=== PATIENT | male | born 1955 | race Caucasian/White ===

== ENCOUNTER 2020-04-10 13:22 | Outpatient (CLI) | payer OTHER, SELFPAY ==
--- NOTE | 2020-04-10 13:32 | XRR_ITS ---
PROCEDURE INFORMATION: Exam: XR Cervical Spine, 2 or 3 Views Exam date and time: 04/10/2020 1:32 PM Age: 64 years old Clinical indication: Neck pain TECHNIQUE: Imaging protocol: XR of the cervical spine, 2 or 3 views. COMPARISON: No relevant prior studies available. FINDINGS: Vertebrae: No acute fracture. Normal alignment. Degenerative change is identified in the spine. There is disc space narrowing and osteophyte formation especially at C5/6 and C6/7. Soft tissues: Unremarkable. XR/XR cervical spine 3V* [id number] IMPRESSION: No acute findings.
== END 2020-04-10 13:23 | disposition home or self-care (01) ==
LOC: RAD 13:27
PROVIDERS: PCP Nurse Practitioner Family; Visit Provider Nurse Practitioner Family
DX: M54.2 Cervicalgia (principal)
CPT/HCPCS: 72040

== ENCOUNTER 2020-04-29 07:35 | Outpatient (CLI) | payer OTHER, SELFPAY ==
--- NOTE | 2020-04-29 08:45 | MR_ITS ---
WS: [id number] MRI CERVICAL SPINE HISTORY: M50.30 Other cervical disc degeneration, unspecified cervical disease... COMPARISON: None available. Normal posterior cervical alignment. Severe degenerative disc space narrowing and desiccation at C5-6 . Modic 1 changes at C6 and C7 with moderate disc space narrowing. Endplate hypertrophic osteophytes at all levels. Signal within the cord is normal. There is a small osteophyte and disc at C5 causing mild contact on the ventral thecal sac. Craniocervical junction, C1 and C2 relationship, odontoid process and soft tissues are normal. C2-C3: Small osteophytes with no stenosis. C3-C4: Mild osteophytic ridging with a central disc protrusion. No significant stenosis. C4-C5: Mild annular disc bulging and osteophytic ridging. There is a very shallow central disc protru jw. Moderate bilateral facet joint arthritis, LEFT greater than RIGHT. C5-C6: Moderate osteophytic ridging and annular disc bulging. Mild facet joint arthritis. Small osteo phytes encroach upon the ventral thecal sac and foramen. Exiting nerve roots on the RIGHT are being d isplaced slightly. There is very mild central and RIGHT foraminal stenosis. C6-C7: Mild annular disc bulging and osteophyte ridging. There is mild narrowing of the central canal and foramen due to combination of disc osteophyte disease. Slightly greater foraminal narrowing as c ompared to C5-6. C7-T1: Normal. Paravertebral soft tissues are normal. MR/MR cervical spin wo con* [id number] IMPRESSION: 1. Mild central and bilateral foraminal stenosis at C5-6 and C6-7 due to osteo phytes and disc disease. Slightly greater foraminal narrowing at C6-7. 2. Advanced degenerative disc disease and narrowing at C5-6 and C6-7.
== END 2020-04-29 07:36 | disposition home or self-care (01) ==
LOC: RADSHAW 07:38
PROVIDERS: PCP Nurse Practitioner Family; Visit Provider Nurse Practitioner Family
DX: M50.30 Other cervical disc degeneration, unspecified cervical region (principal); M48.02 Spinal stenosis, cervical region; M50.323 Other cervical disc degeneration at C6-C7 level; M25.78 Osteophyte, vertebrae
CPT/HCPCS: 72141

== ENCOUNTER 2020-05-08 08:30 | Outpatient (RCR) | payer OTHER, SELFPAY | END 2020-05-15 23:59 | disposition home or self-care (01) | LOC: SPT 08:30 | PROVIDERS: PCP Nurse Practitioner Family; Referring Provider Nurse Practitioner Family; Visit Provider Nurse Practitioner Family | DX: M50.30 Other cervical disc degeneration, unspecified cervical region (principal) | CPT/HCPCS: 97162 ==

== ENCOUNTER 2022-09-15 12:28 | Emergency (ER) | payer MEDICARE, SELFPAY ==
[2022-09-15 12:36] VITALS: BP 149/79; PULSE 103; RESP 16; TEMP 36.4; O2SAT 98
--- NOTE | 2022-09-15 12:40 | ED_ITS ---
HPI - Weakness General: Chief complaint: Weakness Stated complaint: lethargic, eyes hurt Time Seen by Provider: 09/15/22 12:40 History of Present Illness: Mr. Law is a 67-year-old gentleman without significant past medical history presenting to the emergency department for generalized illness. He reports onset of symptoms subacute approximately 2 days ago. He was driving to work when he had onset of nausea that required him to ice puller and vomit. Subsequent to that he had profound fatigue and reports having difficulty keeping his eyes open. He thought that sleeping would help however when he woke up he felt similar and so returned home unable to work. He reports sinus and facial soreness as well as mild headache. He has cough which is baseline however sputum is more productive. He had some improvement in nasal discharge with [id number] medications. Intensity symptoms is moderate to severe. Course has persisted. No other specific changes in health, exace rbating, or alleviating factors identified. Onset (ago): day(s) Duration: constant Location: generalized Severity: moderate Quality: aching Relieving factors: none Exacerbating factors: none Associated symptoms: Reports nausea, vomiting and other Review of Systems General: Reports: 10 or more systems reviewed and unremarkable except in HPI and below GI: Reports: nausea and vomiting PFSH ED PFSH: Medical History (Updated 09/23/22 @ 00:03 by MARÍA ELENA Stroud) Chronic neck pain Surgical History History of surgery on arm Hx of foot surgery Family History Father Cancer Mother CAD (coronary artery disease) Social History Smoking and tobacco status: current every day smoker cigarettes and smokeless tobacco Physical Exam Const: COMMON NORMALS: alert GENERAL APPEARANCE: cooperative and well developed HENMT: COMMON NORMALS: normocephalic and atraumatic HEAD & SCALP: normocephalic and atraumatic THROAT: posterior oropharynx normal OTHER: Mild frontal sinus pressure. Patient is edentulous without evidence of abscess or bleeding. Eye: COMMON NORMALS: Equal, round and reactive pupils present, EOMs intact bilaterally and conjunctivae normal CONJUNCTIVA: Yes conjunctivae normal SCLERA: sclerae normal PUPIL: Yes Equal, round and reactive pupils present Neck/C-Spine: COMMON NORMALS: supple GENERAL: Yes trachea midline Resp: COMMON NORMALS: clear to auscultation bilaterally EFFORT & INSPECTION: Yes able to speak in complete sentences AUSCULTATION: clear to auscultation bilaterally Cardio: COMMON NORMALS: regular rate and regular rhythm RATE: regular rate RHYTHM: regular rhythm GI: COMMON NORMALS: Soft to palpation PALPATION: Yes Soft to palpation and No Tenderness to palpation present (GI) Extremity: GENERAL: Yes normal exam except as noted and No edema Neuro: COMMON NORMALS: moves all extremities SENSORIUM/ORIENTATION: Yes alert and No Orientation impaired Psych: COMMON NORMALS: mental status grossly normal and Normal thought process present THOUGHT PROCESS: Normal thought process present Course Vital Signs: Vital signs: Vital Signs Temperature 97.6 F 09/15/22 12:36 Pulse Rate 89 09/15/22 14:06 Respiratory Rate 16 09/15/22 14:06 Blood Pressure 146/79 09/15/22 14:06 Pulse Oximetry 99 09/15/22 14:06 Oxygen Delivery Me thod 09/15/22 13:37 MDM - Weakness Medical Decision Making 67-year-old gentleman who presented to the emergency department with generalized illness. Nonfocal neurologic exam and patient is nontoxic. Exam as above. No significant hematologic or metabolic abnormalities. Rapid viral testing is negative. Chest x-ray with emphysema. No lobar consolidation or pneumothorax. Patient significantly improved with Toradol and IV fluids. Most likely etiology of patient's symptoms is viral illness. The results of ED evaluation were discussed with the patient including prescriptions and/or symptomatic cares (if applicable) including appropriate and responsible use, followup plan, and return precautions. The patient verbalized understanding and felt safe for discharge. Medical Records I reviewed the patient's medical records. Lab Data I reviewed the patient's lab results. 09/15/22 12:56 09/15/22 12:56 Radiology Impressions Chest X-Ray 09/15/22 12:48 IMPRESSION: Chronic emphysema and biapical pleural thickening is stable. No acute findings. Laboratory Results WBC 4.4 10^3/uL (4.0-10.0) 09/15/22 12:56 RBC 4.59 10^6/uL (4.1-5.3) 09/15/22 12:56 Hgb 15.1 g/dL (11.7-16.6) 09/15/22 12:56 Hct 45.7 % (42.0-52.0) 09/15/22 12:56 MCV 99.6 fl (80-94) H 09/15/22 12:56 MCH 32.9 pg (28.0-34.0) 09/15/22 12:56 MCHC 33.0 g/dL (30.0-36.0) 09/15/22 12:56 RDW 14.4 % (12.1-15.1) 09/15/22 12:56 Plt Count 128 10^3/cmm (130-400) L 09/15/22 12:56 MPV 10.5 fL (7.4-10.4) H 09/15/22 12:56 Neut % (Auto) 39.7 % 09/15/22 12:56 Lymph % (Auto) 43.8 % 09/15/22 12:56 Harris % (Auto) 12.7 % 09/15/22 12:56 Eos % (Auto) 3.4 % 09/15/22 12:56 Baso % (Auto) 0.2 % 09/15/22 12:56 Neut # (Auto) 1.75 10^3/uL (1.8-7.7) L 09/15/22 12:56 Lymph # (Auto) 1.9 10^3/uL (0.8-4.8) 09/15/22 12:56 Harris # (Auto) 0.6 10^3/uL (0.2-0.9) 09/15/22 12:56 Eos # (Auto) 0.2 10^3/uL (0.0-0.8) 09/15/22 12:56 Baso # (Auto) 0.0 10^3/uL (0.0-0.1) 09/15/22 12:56 Nucleated RBC % (auto) 0 % 09/15/22 12:56 Nucleated RBCs # 0.0 /100WBC 09/15/22 12:56 Sodium 136 mmol/L (136-145) 09/15/22 12:56 Potassium 3.8 mmol/L (3.5-5.1) 09/15/22 12:56 Chloride 102 mmol/L (98-107) 09/15/22 12:56 Carbon Dioxide 24 mmol/L (22-29) 09/15/22 12:56 Anion Gap 13.8 (5-19) 09/15/22 12:56 BUN 21 mg/dL (8-23) 09/15/22 12:56 Creatinine 0.8 mg/dL (0.7-1.2) 09/15/22 12:56 GFR Calculation 97.0 mL/min (90-130) 09/15/22 12:56 Glucose 145 mg/dL (65-115) H 09/15/22 12:56 Calculated Osmolality 288 mOsm/kg (285-295) 09/15/22 12:56 Calcium 8.2 mg/dL (8.5-10.5) L 09/15/22 12:56 Influenza Type A Ag negative (Negative) 09/15/22 12:58 Influenza Type B Ag negative (Negative) 09/15/22 12:58 SARS-CoV-2 Ag (Rapid) negative (Negative) 09/15/22 12:58 Discharge Plan Discharge Patient Disposition: Home Clinical Impression: COPD (chronic obstructive pulmonary disease), Acute viral syndrome, Fatigue, Thrombocytopenia Condition: Stable Prescriptions: New albuterol sulfate 90 mcg/actuation HFA aerosol inhaler 2 inh inhalation Q4H PRN (Reason: shortness of breath or wheezing) Qty: 8.5 0RF Discharge Orders: Discharge ED (Routine); Ordered 09/15/22 Ordered By: José Miguel Mckeon Referrals: Kristin Chavez ACCOUNT EXECUTIVE [Primary Care Provider] - Discharge Diet: Usual diet Discharge Activity: Increase activity as tolerated Patient Instructions: COPD (Chronic Obstructive Pulmonary Disease) (ED), Viral Syndrome (ED), Thrombocytopenia (ED) Activity Restrictions/Additional Instructions: Thank you for visiting the emergency department. You were seen and evaluated for generalized malaise. The most likely cause of your symptoms is viral in nature, given description of symptoms and underlying lung disease I will provide prescriptions. I will prescribe steroids and antibiotics. Please also use your albuterol metered-dose inhaler 2 puffs every 4 hours for 24 hours followed by 2 puffs every 6 hours for 24 hours followed by 2 puffs every 8 hours for 24 hours and then return to the normal schedule. You may use [id number] medications such as acetaminophen and ibuprofen for pain however please do not exceed the daily recommended dosage as listed on the packaging and please keep in mind that many namebrand medications contain the same active ingredients. Please avoid these medications if previously instructed to do so by another physician due to other underlying medical condition. Please ensure that you are staying hydrated. You were noted to have mildly low platelet count, this may be a chronic however does require follow-up with a primary care provider and repeat blood work. Return to the emergency department for uncontrolled symptoms, any new neurologic symptoms, or anything else that you are concerned about and feel needs emergency department evaluation. Coding Level of Care Code ED Collision Technician for [place]
--- NOTE | 2022-09-15 12:48 | XR_ITS ---
WS: [id number] PORTABLE CHEST HISTORY: cough COMPARISON: 11/23/2015 Marked pulmonary hyperexpansion. Biapical pleural thickening and scarring and fibrosis. Similar to pr ior study. No pleural effusion or pneumothorax. Cardiac size: Normal. Mediastinum/Aorta: Mild atherosclerosis aorta. No osseous abnormality seen. XR/XR chest 1V portable [id number] IMPRESSION: Chronic emphysema and biapical pleural thickening is stable. No acute findings.
[2022-09-15] MEDS: ketorolac 30 mg/mL INJ 15 MG IVP (12:56)
[2022-09-15] MEDS: sodium chloride 0.9% 1,000 ML 999 ML IV (12:56)
--- NOTE | 2022-09-15 13:03 | PC.PHAR ---
PT STATES TAKES NO RX OR OTC MEDICATIONS
[2022-09-15 13:04] VITALS: PULSE 94; RESP 16; O2SAT 98
[2022-09-15 13:17] LABS: Basophils % 0.2 %; Eosinophils # 0.2 10^3/uL (0.0-0.8); Eosinophils % 3.4 %; Hematocrit 45.7 % (42.0-52.0); Hemoglobin 15.1 g/dL (11.7-16.6); Lymphocytes # 1.9 10^3/uL (0.8-4.8); Lymphocytes % 43.8 %; Mean Corpuscular Hemoglobin 32.9 pg (28.0-34.0); Mean Corpuscular Volume 99.6 fl (80-94); Mean Platelet Volume 10.5 fL (7.4-10.4); Monocytes # 0.6 10^3/uL (0.2-0.9); Monocytes % 12.7 %; Neutrophils # 1.75 10^3/uL (1.8-7.7); Neutrophils % 39.7 %; Nucleated Red Blood Cells % 0 %; Platelet Count 128 10^3/cmm (130-400); Red Blood Count 4.59 10^6/uL (4.1-5.3); Red Cell Distribution Width 14.4 % (12.1-15.1); White Blood Count 4.4 10^3/uL (4.0-10.0)
[2022-09-15 13:28] LABS: Influenza A by IFA negative (Negative); Influenza B by IFA negative (Negative); SARS Covid-2 Antigen negative (Negative)
[2022-09-15 13:34] LABS: Anion Gap 13.8 (5-19); Blood Urea Nitrogen 21 mg/dL (8-23); Calcium 8.2 mg/dL (8.5-10.5); Carbon Dioxide 24 mmol/L (22-29); Chloride 102 mmol/L (98-107); Glucose 145 mg/dL (65-115); Osmolality Calculated 288 mOsm/kg (285-295); Potassium 3.8 mmol/L (3.5-5.1); Sodium 136 mmol/L (136-145)
[2022-09-15 13:37] VITALS: BP 125/73; PULSE 80; RESP 18; O2SAT 96
[2022-09-15 14:06] VITALS: BP 146/79; PULSE 89; RESP 16; O2SAT 99
== END 2022-09-15 14:07 | disposition home or self-care (01) ==
PROVIDERS: Emergency Provider Emergency Medicine; PCP Nurse Practitioner Family
DX: J44.9 Chronic obstructive pulmonary disease, unspecified (principal); B34.9 Viral infection, unspecified; R53.83 Other fatigue; D69.6 Thrombocytopenia, unspecified; Z20.822 Contact with and (suspected) exposure to COVID-19; F17.210 Nicotine dependence, cigarettes, uncomplicated; F17.220 Nicotine dependence, chewing tobacco, uncomplicated
CPT/HCPCS: 36415; 71045; 80048; 85025; 87426; 87804; 96374; 99284; J1885; J7030

== ENCOUNTER 2022-11-06 15:24 | Emergency (ER) | payer MEDICARE, MEDICAID, SELFPAY ==
[2022-11-06 15:30] VITALS: BP 132/79; PULSE 86; RESP 17; TEMP 36.7; O2SAT 98; BMI 19.1
--- NOTE | 2022-11-06 15:36 | ECG_ITS ---
[facility] Test Date: 2022-11-06 Pat Name: Espinoza Law Jr Department: Room: Gender: Male Server Engineer: : 1955 Requested By: José Miguel Mckeon Order Number: [id number] Taylor MD: Regi Gonzalez M.D. Measurements Intervals [place] Rate: 83 P: 83 [place]: 124 QRS: 89 QRSD: 93 T: 75 QT: 356 QTc: 420 Interpretive Statements SINUS RHYTHM POSSIBLE LEFT ATRIAL ENLARGEMENT [-0.1mV P-WAVE IN V1/V2] INCOMPLETE RIGHT BUNDLE BRANCH BLOCK [90+ ms QRS DURATION, TERMINAL R IN V1/V2, 40+ ms S IN I/aVL/V4/V5/V6] No previous ECG available for comparison Electronically Signed On 11-06-2022 23:03:59 CDT by Regi Gonzalez M.D. [id number]
--- NOTE | 2022-11-06 15:48 | XR_ITS ---
WS: [id number] EXAMINATION: XR chest 2V* [id number] REASON FOR EXAM: cp COMPARISON: 09/15/2022 ORDER DATE: 11/06/2022 3:48 PM FINDINGS: There are scattered perihilar granulomatous calcifications. There are chronically increased perihilar /basilar bronchovascular and interstitial thickening with hyperinflation. There is biapical pleural thickening and parenchymal scarring The cardiac and mediastinal outlines are unremarkable except for atherosclerotic aortic change. There are no pleural effusions. There are no discrete noncalcified pul monary nodules. Chronic degenerative spine changes are present. There is an old right clavicle fractu re deformity XR/XR chest 2V* [id number] IMPRESSION: DIFFUSE PULMONARY CHANGES OF COPD. NO ACUTE PULMONARY CHANGE.
[2022-11-06 18:35] VITALS: RESP 18
[2022-11-06] MEDS: lidocaine 2% viscous 15 ML, aluminum-mag hydrox-simethicon 30 ML, sucralfate oral liq 1 GM PO (18:41)
--- NOTE | 2022-11-06 18:46 | ED_ITS ---
HPI - Chest Pain General: Chief Complaint: Chest Pain Stated Complaint: Chest pain/Sternum pain Time Seen by Provider: 11/06/22 18:13 Source: patient History of Present Illness: 67-year-old gentleman with epigastric discomfort that started on Wednesday. He notes that it seems to be a constant pain. It started after eating some spicy food. He says it feels like he needs to burp but he is having trouble doing so. He has not vomited. No diarrhea. No fever. No chest pain. No shortness of breath MD complaint: other Onset (ago): hour(s) Timing of current episode: constant Prior episodes: Yes Onset: during rest and after eating Pain location: epigastric Pain radiation: back Quality: aching Relieving factors: nothing Exacerbating factors: nothing Associated symptoms: Reports abdominal pain and nausea; Deny diaphoresis, dyspnea, fever(s), leg edema, palpitations or vomiting Review of Systems Const: Denies: fever(s) or diaphoresis ENMT: Denies: throat pain Card: Denies: chest pain or palpitations Resp: Denies: dyspnea GI: Reports: abdominal pain and nausea; Denies: vomiting or diarrhea : Denies: flank pain PFSH ED PFSH: Medical History Chronic neck pain Surgical History History of surgery on arm Hx of foot surgery Family History Father Cancer Mother CAD (coronary artery disease) Social History Smoking and tobacco status: current every day smoker cigarettes and smokeless tobacco Physical Exam Const: COMMON NORMALS: no acute distress GENERAL APPEARANCE: cooperative; not ill appearing and not frail appearing HENMT: COMMON NORMALS: normocephalic, atraumatic and Normal external nose present HEAD & SCALP: normocephalic and atraumatic FACE & SINUS: normal facial exam and face symmetric NOSE: Normal external nose present Eye: COMMON NORMALS: Equal, round and reactive pupils present and EOMs intact bilaterally PUPIL: Yes Equal, round and reactive pupils present Neck/C-Spine: GENERAL: Yes trachea midline Chest: CHEST: Yes Symmetrical chest wall rise Resp: COMMON NORMALS: normal respiratory effort, No retractions, No use of accessory muscles and clear to auscultation bilaterally AUSCULTATION: clear to auscultation bilaterally Cardio: COMMON NORMALS: regular rate and regular rhythm RATE: regular rate RHYTHM: regular rhythm GI: COMMON NORMALS: Normal to inspection, nondistended, normoactive bowel sounds present Extremity: COMMON NORMALS: no pedal edema Neuro: [place] COMA SCALE: document GCS findings [place] coma scale eye opening: Spontaneous [place] coma scale verbal response: Orientated [place] coma scale motor response: Obey commands [place] coma scale total score: 15 SENSORY EXAM: Yes extremities (intact) Psych: COMMON NORMALS: speech normal SPEECH: Yes normal speech Skin: COMMON NORMALS: no rashes or lesions noted GENERAL SKIN EXAM: no rashes or lesions noted Course Vital Signs: Vital signs: Vital Signs Temperature 98.0 F 11/06/22 15:30 Pulse Rate 76 11/06/22 22:43 Respiratory Rate 15 11/06/22 22:43 Blood Pressure 156/94 11/06/22 22:43 Pulse Oximetry 96 11/06/22 22:43 Oxygen Delivery Me thod 11/06/22 22:43 MDM - Chest Pain Medical Decision Making 67 year old male with epigastric pain. Pain and completely relieved by GI cocktail. His white blood cell count is 5.4. Platelet count 124. BMP is not remarkable. CRP is 7.7. Liver enzymes are elevated, sparing billirubin at 1.0. Lipase minimally elevated. His CT scan shows a suspicious mass in his liver with multiple smaller masses, and some lymph nodes suspicious for reactive metastasis. He was counseled on this diagnosis. We will ask case management to refer him to oncology for further evaluation. His hepatitis panel was pending at the time, but it appears he has hepatitis C antibodies. Will treat him for al coholic gastritis as per his admission, ?I drink like a fish?. This is the most likely cause of this epigastric pain. Lab Data 11/06/22 18:41 11/06/22 18:41 Radiology Impressions Chest X-Ray 11/06/22 15:48 IMPRESSION: DIFFUSE PULMONARY CHANGES OF COPD. NO ACUTE PULMONARY CHANGE. Abdomen/Pelvis CT 11/06/22 19:56 IMPRESSION: 1. 7.6 x 6.6 x 7.3 cm partially exophytic mass in the left liver most consistent with hepatocellular carcinoma versus other benign or malignant mass. 2. Multiple other smaller hepatic lesions consistent with multi centric hepatocellular carcinoma versus extensive hepatic metastasis. 3. Mild gastrohepatic ligament and jannette hepatis adenopathy most consistent with metastatic lymphadenopathy. 4. Recanalization of the umbilical vein consistent with portal hypertension and portosystemic shunt through the umbilical area into the right common femoral vein. Laboratory Results WBC 5.4 10^3/uL (4.0-10.0) 11/06/22 18:41 RBC 4.51 10^6/uL (4.1-5.3) 11/06/22 18:41 Hgb 14.7 g/dL (11.7-16.6) 11/06/22 18:41 Hct 44.9 % (42.0-52.0) 11/06/22 18:41 MCV 99.6 fl (80-94) H 11/06/22 18:41 MCH 32.6 pg (28.0-34.0) 11/06/22 18:41 MCHC 32.7 g/dL (30.0-36.0) 11/06/22 18:41 RDW 14.8 % (12.1-15.1) 11/06/22 18:41 Plt Count 124 10^3/cmm (130-400) L 11/06/22 18:41 MPV 10.8 fL (7.4-10.4) H 11/06/22 18:41 Neut % (Auto) 32.6 % 11/06/22 18:41 Lymph % (Auto) 52.2 % 11/06/22 18:41 [place] % (Auto) 11.6 % 11/06/22 18:41 Eos % (Auto) 2.8 % 11/06/22 18:41 Baso % (Auto) 0.6 % 11/06/22 18:41 Neut # (Auto) 1.75 10^3/uL (1.8-7.7) L 11/06/22 18:41 Lymph # (Auto) 2.8 10^3/uL (0.8-4.8) 11/06/22 18:41 [place] # (Auto) 0.6 10^3/uL (0.2-0.9) 11/06/22 18:41 Eos # (Auto) 0.2 10^3/uL (0.0-0.8) 11/06/22 18:41 Baso # (Auto) 0.0 10^3/uL (0.0-0.1) 11/06/22 18:41 Nucleated RBC % (auto) 0 % 11/06/22 18:41 Nucleated RBCs # 0.0 /100WBC 11/06/22 18:41 Sodium 141 mmol/L (136-145) 11/06/22 18:41 Potassium 4.5 mmol/L (3.5-5.1) 11/06/22 18:41 Chloride 105 mmol/L (98-107) 11/06/22 18:41 Carbon Dioxide 27 mmol/L (22-29) 11/06/22 18:41 Anion Gap 13.5 (5-19) 11/06/22 18:41 BUN 18 mg/dL (8-23) 11/06/22 18:41 Creatinine 0.7 mg/dL (0.7-1.2) 11/06/22 18:41 GFR Calculation 113.2 mL/min (90-130) 11/06/22 18:41 Glucose 85 mg/dL (65-115) 11/06/22 18:41 Calculated Osmolality 293 mOsm/kg (285-295) 11/06/22 18:41 Calcium 8.5 mg/dL (8.5-10.5) 11/06/22 18:41 Total Bilirubin 1.0 mg/dL (0.15-1.2) 11/06/22 18:41 AST 262 U/L (0-40) H 11/06/22 18:41 ALT 254 U/L (0-41) H 11/06/22 18:41 Alkaline Phosphatase 133 U/L (40-130) H 11/06/22 18:41 C-Reactive Protein 7.7 mg/L (0.0-4.9) H 11/06/22 18:41 Total Protein 8.2 g/dL (6.6-8.7) 11/06/22 18:41 Albumin 3.3 g/dL (3.5-5.2) L 11/06/22 18:41 Globulin 4.9 g/dL (1.3-4.6) H 11/06/22 18:41 Lipase 66 U/L (13-60) H 11/06/22 18:41 Hepatitis A IgM Ab Non-reactive (Nonreactive) 11/06/22 18:41 Hep Bs Antigen Non-reactive (Nonreactive) 11/06/22 18:41 Hep B Core IgM Ab Non-reactive (Nonreactive) 11/06/22 18:41 Hepatitis C Antibody Reactive (Nonreactive) H 11/06/22 18:41 Discharge Plan Discharge Patient Disposition: Home Clinical Impression: Gastritis Condition: Stable Prescriptions: New Prevacid 30 mg capsule,delayed release(DR/EC) 30 mg PO DAILY Qty: 30 0RF Carafate 1 gram tablet 1 g PO TID 28 Days Qty: 84 0RF No Action albuterol sulfate 90 mcg/actuation HFA aerosol inhaler 2 inh inhalation Q4H PRN (Reason: shortness of breath or wheezing) Qty: 8.5 0RF Discharge Orders: Discharge ED (Routine); Ordered 11/06/22 Ordered By: Gucci Garduno Referrals: Kristin Chavez FNP [Primary Care Provider] - 4-7 days Patient Instructions: Gastritis (ED) Activity Restrictions/Additional Instructions: Our case management director will make you an appointment as an outpatient for further work- up of the liver mass found on CAT scan this evening. You should get a call from her at the beginning of next week. Medication as directed. Return for fever greater than 100, vomiting liquids or medications, worsening pain despite treatment, other concerning symptoms. Coding Level of Care Code ED Foundry Worker General for [place]
[2022-11-06 19:06] LABS: Basophils % 0.6 %; Eosinophils # 0.2 10^3/uL (0.0-0.8); Eosinophils % 2.8 %; Hematocrit 44.9 % (42.0-52.0); Hemoglobin 14.7 g/dL (11.7-16.6); Lymphocytes # 2.8 10^3/uL (0.8-4.8); Lymphocytes % 52.2 %; Mean Corpuscular HGB Conc 32.7 g/dL (30.0-36.0); Mean Corpuscular Hemoglobin 32.6 pg (28.0-34.0); Mean Corpuscular Volume 99.6 fl (80-94); Mean Platelet Volume 10.8 fL (7.4-10.4); Monocytes # 0.6 10^3/uL (0.2-0.9); Monocytes % 11.6 %; Neutrophils # 1.75 10^3/uL (1.8-7.7); Neutrophils % 32.6 %; Nucleated Red Blood Cells % 0 %; Platelet Count 124 10^3/cmm (130-400); Red Blood Count 4.51 10^6/uL (4.1-5.3); Red Cell Distribution Width 14.8 % (12.1-15.1); White Blood Count 5.4 10^3/uL (4.0-10.0)
[2022-11-06 19:29] LABS: Alanine Aminotransferase 254 U/L (0-41); Albumin Level 3.3 g/dL (3.5-5.2); Alkaline Phosphatase 133 U/L (40-130); Anion Gap 13.5 (5-19); Aspartate Amino Transferase 262 U/L (0-40); Blood Urea Nitrogen 18 mg/dL (8-23); C Reactive Protein 7.7 mg/L (0.0-4.9); Calcium 8.5 mg/dL (8.5-10.5); Carbon Dioxide 27 mmol/L (22-29); Chloride 105 mmol/L (98-107); Creatinine Clr Calc Pharmacy 85.6393; Globulin 4.9 g/dL (1.3-4.6); Glomerular Filtration Rate 113.2 mL/min (90-130); Glucose 85 mg/dL (65-115); Lipase 66 U/L (13-60); Osmolality Calculated 293 mOsm/kg (285-295); Potassium 4.5 mmol/L (3.5-5.1); Sodium 141 mmol/L (136-145); Total Protein 8.2 g/dL (6.6-8.7)
--- NOTE | 2022-11-06 19:56 | CTR_ITS ---
PROCEDURE INFORMATION: Exam: CT Abdomen And Pelvis With Contrast Exam date and time: 11/06/2022 8:48 PM Age: 67 years old Clinical indication: Abdominal pain; Epigastric; Additional info: Epigastric pain, elevated liver enzymes TECHNIQUE: Imaging protocol: Computed tomography of the abdomen and pelvis with contrast. Radiation optimization: All CT scans at this facility use at least one of these dose optimization techniques: automated exposure control; mA and/or kV adjustment per patient size (includes targeted exams where dose is matched to clinical indication); or iterative reconstruction. Contrast material: OMNI 350; Contrast volume: 100 ml; Contrast route: INTRAVENOUS (IV); REPORTING DATA: Count of CT and Cardiac NM exams in prior 12 months: This patient has received 0 known CTs and 0 known cardiac nuclear medicine studies in the 12 months prior to the current study. COMPARISON: CR XR chest 2V* [id number] 11/06/2022 4:13 PM RADIATION DOSE METRICS: Total DLP (mGy-cm): 388.13 FINDINGS: Liver: 7.6 x 6.6 x 7.3 cm partially exophytic mass in the left liver most consistent with hepatocellular carcinoma versus other benign or malignant mass. Multiple other smaller hepatic lesions consistent with multi centric hepatocellular carcinoma versus extensive hepatic metastasis. Gallbladder and bile ducts: Normal. No calcified stones. No ductal dilation. Pancreas: Normal. No ductal dilation. Spleen: One or more accessory splenules. Adrenal glands: Normal. No mass. Kidneys and ureters: Normal. No hydronephrosis. Stomach and bowel: Unremarkable. No obstruction. No mucosal thickening. Appendix: No evidence of appendicitis. Intraperitoneal space: Unremarkable. No free air. No significant fluid collection. Vasculature: Calcification of the abdominal aorta and/or iliac arteries consistent with atherosclerotic vessel disease. One or more calcified pelvic phleboliths. Recanalization of the umbilical vein consistent with portal hypertension and portosystemic shunt through the umbilical area into the right common femoral vein. Lymph nodes: Calcified bilateral hilar nodes and/or mediastinal nodes and/or lung granulomas consistent with old granulomatous disease. Mild gastrohepatic ligament and jannette hepatis adenopathy most consistent with metastatic lymphadenopathy. Urinary bladder: Unremarkable as visualized. Reproductive: Nonspecific prostate calcifications. Bones/joints: Unremarkable. No acute fracture. Soft tissues: Unremarkable. CT/CT abdomen pelvis w con* [id number] IMPRESSION: 1. 7.6 x 6.6 x 7.3 cm partially exophytic mass in the left liver most consistent with hepatocellular carcinoma versus other benign or malignant mass. 2. Multiple other smaller hepatic lesions consistent with multi centric hepatocellular carcinoma versus extensive hepatic metastasis. 3. Mild gastrohepatic ligament and jannette hepatis adenopathy most consistent with metastatic lymphadenopathy. 4. Recanalization of the umbilical vein consistent with portal hypertension and portosystemic shunt through the umbilical area into the right common femoral vein.
[2022-11-06] MEDS: iohexol 350 mg/mL 500 mL Btl (per mL) IV (20:44)
[2022-11-06 21:44] VITALS: BP 131/70; PULSE 73; RESP 16; O2SAT 96
[2022-11-06 22:40] LABS: Hepatitis A Antibody IgM Non-Reactive (Nonreactive); Hepatitis B Core IgM Non-Reactive (Nonreactive); Hepatitis B Surface Antigen Non-Reactive (Nonreactive); Hepatitis C Virus Antibody Reactive (Nonreactive)
[2022-11-06 22:43] VITALS: BP 156/94; PULSE 76; RESP 15; O2SAT 96
--- NOTE | 2022-11-09 14:01 | DCPLANNER ---
Addendum entered by Maribel Noyola 11/18/22 12:42: Spoke with patient, he has a follow up appointment scheduled with his primary care physician. Addendum entered by Maribel Noyola 11/10/22 11:58: social work case manager received the following message from oncology about follow up appointment: This patient will need a biopsy prior to being scheduled in our clinic. His primary care provider should be able to order the biopsy. Once that is completed, then his primary care provider can refer him to us. Thank you. social work case manager called phone number [phone] this phone number is unreachable. social work case manager unable to speak with patient or leave a voicemail Original Note: social work case manager had message to schedule a follow up appointment for patient with oncology. social work case manager sent patients information to the front office staff at oncology. Patients information will be reviewed. Clinic will call patient with appointment information.
== END 2022-11-06 22:52 | disposition home or self-care (01) ==
PROVIDERS: Emergency Provider Emergency Medicine; PCP Nurse Practitioner Family
DX: K29.20 Alcoholic gastritis without bleeding (principal); F17.210 Nicotine dependence, cigarettes, uncomplicated; B19.20 Unspecified viral hepatitis C without hepatic coma
CPT/HCPCS: 71046; 74177; 80053; 80074; 83690; 85025; 86140; 87522; 93005; 99285; Q9967

== ENCOUNTER → 2022-11-23 10:32 | Outpatient (BNVA) | payer MEDICARE, SELFPAY | PROVIDERS: PCP Nurse Practitioner Family; Visit Provider Nurse Practitioner Family | DX: R16.0 Hepatomegaly, not elsewhere classified (principal) | CPT/HCPCS: 82977; 83615; 84450; 84460; 85025 ==

== ENCOUNTER 2023-02-26 09:02 | Oncology outpatient (recurring) (ONCR) | payer MEDICARE, MEDICAID, SELFPAY | END 2023-03-15 23:59 | disposition home or self-care (01) | LOC: ONCMED 09:03 | PROVIDERS: PCP Nurse Practitioner Family; Visit Provider Internal Medicine Hematology & Oncology | DX: C22.0 Liver cell carcinoma (principal); F17.210 Nicotine dependence, cigarettes, uncomplicated; F10.20 Alcohol dependence, uncomplicated; R74.8 Abnormal levels of other serum enzymes | CPT/HCPCS: 99204 ==

== ENCOUNTER 2023-03-11 10:12 | Emergency (ER) | payer MEDICARE, MEDICAID, SELFPAY ==
[2023-03-11 10:21] VITALS: BP 119/74; PULSE 96; RESP 18; TEMP 36.6; O2SAT 96; BMI 17.6
[2023-03-11 12:56] VITALS: BP 140/74; PULSE 78; RESP 36; O2SAT 98
[2023-03-11 13:12] LABS: Basophils # 0.1 10^3/uL (0.0-0.1); Basophils % 0.8 %; Eosinophils # 0.1 10^3/uL (0.0-0.8); Eosinophils % 0.8 %; Hemoglobin 14.9 g/dL (11.7-16.6); Lymphocytes # 2.2 10^3/uL (0.8-4.8); Lymphocytes % 34.5 %; Mean Corpuscular HGB Conc 33.1 g/dL (30.0-36.0); Mean Corpuscular Hemoglobin 32.4 pg (28.0-34.0); Mean Corpuscular Volume 97.8 fl (80-94); Mean Platelet Volume 10.1 fL (7.4-10.4); Monocytes # 0.5 10^3/uL (0.2-0.9); Monocytes % 7.9 %; Neutrophils # 3.47 10^3/uL (1.8-7.7); Neutrophils % 55.7 %; Nucleated Red Blood Cells % 0 %; Platelet Count 178 10^3/cmm (130-400); Red Cell Distribution Width 17.6 % (12.1-15.1); White Blood Count 6.2 10^3/uL (4.0-10.0)
--- NOTE | 2023-03-11 13:12 | ED_ITS ---
HPI - General Adult General: Chief complaint: General Medical Stated complaint: pain all over and sob Time Seen by Provider: 03/11/23 12:30 History of Present Illness: Patient presents to the ER with complaints of pain all over and shortness of breath. He states the pain started in his right upper quadrant aminal region and moved over to his left upper quadrant. He states when he takes a big deep breath he gets sharp stabbing pains in his left upper quadrant. Patient is recently has a diagnosis of liver cancer and is awaiting an appointment at [facility]. Patient states his pain to started within the last couple days. She denies any fever chills but does say he has dry heaves. But no emesis. Review of Systems General: Reports: 10 or more systems reviewed and unremarkable except in HPI and below PFSH ED PFSH: Medical History Chronic neck pain Hepatocellular carcinoma Liver cancer Surgical History History of surgery on arm Hx of foot surgery Family History Father Cancer Mother CAD (coronary artery disease) Social History Smoking and tobacco status: current every day smoker cigarettes and smokeless tobacco Alcohol intake: current Alcohol intake frequency: 3 or more drinks per day Alcohol type: beer Desire information about alcohol rehabilitation?: No Counseling given: Yes Last alcohol use date: 11/22/22 Substance/Drug Use: never Physical Exam Const: COMMON NORMALS: no acute distress, average body habitus, patient oriented x3, no limitations, healthy appearing, alert and well nourished HENMT: COMMON NORMALS: normocephalic, atraumatic, hearing grossly normal bilaterally, external ears normal, Normal external nose present and moist oral mucous membranes HEAD & SCALP: normocephalic and atraumatic NOSE: Normal external nose present EXTERNAL EAR: Yes external ears normal Eye: COMMON NORMALS: Equal, round and reactive pupils present, EOMs intact bilaterally, conjunctivae normal and no scleral icterus CONJUNCTIVA: Yes conjunctivae normal PUPIL: Yes Equal, round and reactive pupils present Neck/C-Spine: COMMON NORMALS: full ROM, no lymphadenopathy, supple, no meningeal signs, no JVD and Thyroid normal THYROID: Thyroid normal Chest: COMMONS NORMALS: normal inspection of the chest and normal palpation of entire chest wall Resp: COMMON NORMALS: normal respiratory effort, No retractions, No use of accessory muscles and clear to auscultation bilaterally AUSCULTATION: clear to auscultation bilaterally Cardio: COMMON NORMALS: no JVD, regular rate, regular rhythm, S1 normal heart sound present, S2 normal heart sound present, No gallops present (Cardio), No c licks present (Cardio), No murmurs present (Cardio) and No rub (Cardio) RATE: regular rate RHYTHM: regular rhythm HEART SOUNDS: S1 normal heart sound present and S2 normal heart sound present GI: COMMON NORMALS: Normal to inspection, nondistended, normoactive bowel sounds present and Soft to palpation; negative for non-tender (Tender to palpate left upper quadrant.) PALPATION: Yes Soft to palpation : COMMON NORMALS: Yes no CVA tenderness BLADDER/KIDNEY EXAM: Yes no CVA tenderness Back/Pelvis: COMMON NORMALS: no CVA tenderness Neuro: COMMON NORMALS: patient oriented x3 SENSORIUM/ORIENTATION: Yes alert MENINGEAL SIGNS: Yes no meningeal signs Course Vital Signs: Vital signs: Vital Signs Temperature 97.9 F 03/11/23 10:21 Pulse Rate 70 03/11/23 13:30 Respiratory Rate 15 03/11/23 13:30 Blood Pressure 142/79 03/11/23 13:30 Pulse Oximetry 97 03/11/23 13:30 Oxygen Delivery Me thod Room Air 03/11/23 13:30 [facility] - General Adult Medical Decision Making Presents to the ER with complaints of all over body of breath. Hurts worse in his left upper quadrant when he takes a big deep breath. Patient does have a active diagnosis of liver cancer. Physical exam was performed lab work was obtained which is essentially improved or stable for the patient. Patient was given Toradol Zofran and normal saline and is patient is feeling much better currently. Patient will be discharged on naproxen to take on an as-needed basi s. Medical Records I reviewed the patient's medical records. Lab Data I reviewed the patient's lab results. 03/11/23 13:01 03/11/23 13:01 Laboratory Results WBC 6.2 10^3/uL (4.0-10.0) 07/27/23 13:01 RBC 4.60 10^6/uL (4.1-5.3) 03/11/23 13:01 Hgb 14.9 g/dL (11.7-16.6) 03/11/23 13:01 Hct 45.0 % (42.0-52.0) 03/11/23 13:01 MCV 97.8 fl (80-94) H 03/11/23 13:01 MCH 32.4 pg (28.0-34.0) 03/11/23 13:01 MCHC 33.1 g/dL (30.0-36.0) 03/11/23 13:01 RDW 17.6 % (12.1-15.1) H 03/11/23 13:01 Plt Count 178 10^3/cmm (130-400) 03/11/23 13:01 MPV 10.1 fL (7.4-10.4) 03/11/23 13:01 Neut % (Auto) 55.7 % 03/11/23 13:01 Lymph % (Auto) 34.5 % 03/11/23 13:01 [place] % (Auto) 7.9 % 03/11/23 13:01 Eos % (Auto) 0.8 % 03/11/23 13:01 Baso % (Auto) 0.8 % 03/11/23 13:01 Neut # (Auto) 3.47 10^3/uL (1.8-7.7) 03/11/23 13:01 Lymph # (Auto) 2.2 10^3/uL (0.8-4.8) 03/11/23 13:01 [place] # (Auto) 0.5 10^3/uL (0.2-0.9) 03/11/23 13:01 Eos # (Auto) 0.1 10^3/uL (0.0-0.8) 03/11/23 13:01 Baso # (Auto) 0.1 10^3/uL (0.0-0.1) 03/11/23 13:01 Nucleated RBC % (auto) 0 % 03/11/23 13:01 Nucleated RBCs # 0.0 /100WBC 03/11/23 13:01 Sodium 132 mmol/L (136-145) L 03/11/23 13:01 Potassium 4.8 mmol/L (3.5-5.1) 03/11/23 13:01 Chloride 99 mmol/L (98-107) 03/11/23 13:01 Carbon Dioxide 25 mmol/L (22-29) 03/11/23 13:01 Anion Gap 12.8 (5-19) 03/11/23 13:01 BUN 15 mg/dL (8-23) 03/11/23 13:01 Creatinine 0.7 mg/dL (0.7-1.2) 03/11/23 13:01 GFR Calculation 113.2 mL/min (90-130) 03/11/23 13:01 Glucose 83 mg/dL (65-115) 03/11/23 13:01 Calculated Osmolality 274 mOsm/kg (285-295) L 03/11/23 13:01 Calcium 8.5 mg/dL (8.5-10.5) 03/11/23 13:01 Magnesium 1.7 mg/dL (1.7-2.3) 03/11/23 13:01 Total Bilirubin 1.9 mg/dL (0.15-1.2) H 03/11/23 13:01 AST 300 U/L (0-40) H 03/11/23 13:01 ALT 124 U/L (0-41) H 03/11/23 13:01 Alkaline Phosphatase 214 U/L (40-130) H 03/11/23 13:01 Total Protein 8.4 g/dL (6.6-8.7) 03/11/23 13:01 Albumin 2.5 g/dL (3.5-5.2) L 03/11/23 13:01 Globulin 5.9 g/dL (1.3-4.6) H 03/11/23 13:01 Lipase 35 U/L (13-60) 03/11/23 13:01 Discharge Plan Discharge Patient Disposition: Home Clinical Impression: Abdominal pain, acute, left upper quadrant, Hepatocellular carcinoma Condition: Stable Prescriptions: New naproxen 500 mg tablet 500 mg PO Q12H PRN (Reason: pain) Qty: 30 0RF No Action diclofenac sodium [Voltaren Arthritis Pain] 1 % gel 2 g topical QID Qty: 100 0RF Rx Instructions: apply to area of pain omeprazole 40 mg capsule,delayed release(DR/EC) 40 mg PO DAILY Discharge Orders: Discharge ED (Routine); Ordered 03/11/23 Ordered By: Jed Pelayo Referrals: Kristin Chavez FNP [Primary Care Provider] - 1 week Patient Instructions: Abdominal Pain (ED) Activity Restrictions/Additional Instructions: Please take all medicine as directed. Please follow-up with your family practice doctor in approximately 1 week for further evaluation and treatment. Coding Level of Care Code ED [employer] [facility] [place]
[2023-03-11 13:30] VITALS: BP 142/79; PULSE 70; RESP 15; O2SAT 97
[2023-03-11 13:30] LABS: Alanine Aminotransferase 124 U/L (0-41); Albumin Level 2.5 g/dL (3.5-5.2); Alkaline Phosphatase 214 U/L (40-130); Anion Gap 12.8 (5-19); Aspartate Amino Transferase 300 U/L (0-40); Blood Urea Nitrogen 15 mg/dL (8-23); Calcium 8.5 mg/dL (8.5-10.5); Carbon Dioxide 25 mmol/L (22-29); Chloride 99 mmol/L (98-107); Globulin 5.9 g/dL (1.3-4.6); Glomerular Filtration Rate 113.2 mL/min (90-130); Glucose 83 mg/dL (65-115); Lipase 35 U/L (13-60); Magnesium 1.7 mg/dL (1.7-2.3); Osmolality Calculated 274 mOsm/kg (285-295); Potassium 4.8 mmol/L (3.5-5.1); Sodium 132 mmol/L (136-145); Total Bilirubin 1.9 mg/dL (0.15-1.2); Total Protein 8.4 g/dL (6.6-8.7)
[2023-03-11] MEDS: ketorolac 30 mg/mL INJ IVP (13:42)
[2023-03-11] MEDS: sodium chloride 0.9% 1,000 ML 999 ML IV (13:42)
[2023-03-11] MEDS: ondansetron 2 mg/ML SDV 2 mL 4 MG IVP (13:42)
[2023-03-11 15:51] VITALS: BP 142/79; PULSE 70; RESP 15; O2SAT 97
== END 2023-03-11 15:52 | disposition home or self-care (01) ==
PROVIDERS: Emergency Provider Emergency Medicine; PCP Nurse Practitioner Family
DX: R10.11 Right upper quadrant pain (principal); R10.12 Left upper quadrant pain; C22.0 Liver cell carcinoma; F17.210 Nicotine dependence, cigarettes, uncomplicated
CPT/HCPCS: 36415; 80053; 83690; 83735; 85025; 96361; 96374; 96375; 99284; J1885; J2405; J7030

== ENCOUNTER 2023-04-08 09:52 | Oncology outpatient (recurring) (ONCR) | payer MEDICARE, MEDICAID, SELFPAY ==
[2023-04-07 09:39] VITALS: BP 144/82; PULSE 99; RESP 18; TEMP 36.8; O2SAT 95
[2023-04-07 09:54] LABS: Basophils % 0.3 %; Eosinophils % 0.6 %; Hematocrit 42.8 % (37-53); Lymphocytes # 1.8 10^3/uL (0.8-4.8); Lymphocytes % 29.1 %; Mean Corpuscular HGB Conc 33.2 g/dL (30-55); Mean Corpuscular Hemoglobin 31.6 pg (27-33); Mean Corpuscular Volume 95.1 fl (82-101); Mean Platelet Volume 10.8 fL (7.4-10.4); Monocytes # 0.4 10^3/uL (0.2-0.9); Monocytes % 7.1 %; Neutrophils # 3.81 10^3/uL (1.8-7.7); Neutrophils % 61.9 %; Nucleated Red Blood Cells % 0 %; Platelet Count 208 10^3/cmm (157-399); Red Cell Distribution Width 22.6 % (12.1-15.1); White Blood Count 6.16 10^3/uL (3.29-11.43)
[2023-04-07 10:18] LABS: Alanine Aminotransferase 231 U/L (0-41); Albumin Level 2.3 g/dL (3.5-5.2); Alkaline Phosphatase 358 U/L (40-130); Blood Urea Nitrogen 22 mg/dL (8-23); Calcium 9.8 mg/dL (8.5-10.5); Carbon Dioxide 29 mmol/L (22-29); Chloride 94 mmol/L (98-107); Creatinine Clr Calc Pharmacy 79.7331; Globulin 6.5 g/dL (1.3-4.6); Glucose 124 mg/dL (65-115); Osmolality Calculated 277 mOsm/kg (285-295); Sodium 131 mmol/L (136-145); Total Bilirubin 6.3 mg/dL (0.15-1.2); Total Protein 8.8 g/dL (6.6-8.7)
[2023-04-07 10:27] LABS: Aspartate Amino Transferase 920 U/L (0-40)
== END 2023-04-15 23:59 | disposition home or self-care (01) ==
PROVIDERS: PCP Nurse Practitioner Family; Visit Provider Internal Medicine Medical Oncology
DX: C22.0 Liver cell carcinoma (principal); K74.60 Unspecified cirrhosis of liver; K76.6 Portal hypertension; R18.8 Other ascites; G89.3 Neoplasm related pain (acute) (chronic); Z79.891 Long term (current) use of opiate analgesic; Z79.899 Other long term (current) drug therapy; F17.210 Nicotine dependence, cigarettes, uncomplicated
CPT/HCPCS: 36415; 80053; 85025; 99213

== ENCOUNTER 2023-04-20 18:23 | Inpatient (IN) | payer MEDICARE, MEDICAID, SELFPAY ==
[2023-04-20 18:27] VITALS: BP 106/63; PULSE 100; RESP 12; TEMP 36.5; O2SAT 99; BMI 17.4
--- NOTE | 2023-04-20 18:47 | XRR_ITS ---
PROCEDURE INFORMATION: Exam: XR Chest Exam date and time: 04/20/2023 6:52 PM Age: 67 years old Clinical indication: Other: AMS; Additional info: AMS, liver cancer TECHNIQUE: Imaging protocol: Radiologic exam of the chest. Views: 1 view. COMPARISON: 1. CR XR chest 2V* [id number] 11/06/2022 4:13 PM 2. CR XR chest 1V portable [id number] 09/15/2022 12:58 PM FINDINGS: Lungs: Stable mild symmetric biapical pleuroparenchymal thickening. No consolidation. Pleural spaces: No pleural effusion or pneumothorax. Heart/Mediastinum: Unremarkable. No cardiomegaly. Vasculature: Aortic arch calcification. Bones/joints: Old healed fracture deformity of the right clavicle. XR/XR chest 1V portable [id number] IMPRESSION: No acute findings.
--- NOTE | 2023-04-20 18:51 | W.ED.AMS ---
HPI - Altered Mental Status General: Chief Complaint: Altered Mental Status Stated Complaint: AMS Time Seen by Provider: 04/20/23 18:39 History of Present Illness: Patient presents to the ER with complaints of altered mental status and decreased oral intake for the last several days. Patient is currently on hospice for liver cancer. Patient has had about 8 ounces intake in the last 24 hours. Has had no urine output. Patient is restless and family is concerned because of patient's sudden downturn. Patient's family says 3 to 4 days ago he was up walking around talking and still driving. Now he is barely coherent and will barely respond to verbal stimuli patient's stated they put a scopolamine patch on him on Wednesday and they started to go downhill after that. The patch was removed today about noon and patient is still not improved. Review of Systems General: Reports: 10 or more systems reviewed and unremarkable except in HPI and below PFSH ED PFSH: Medical History Chronic neck pain Hepatocellular carcinoma Liver cancer Surgical History History of surgery on arm Hx of foot surgery Family History Father Cancer Mother CAD (coronary artery disease) Social History Smoking and tobacco status: current every day smoker cigarettes Packs smoked per day: 1 Years cigarettes smoked: 50 [ Other cigarette details: smoked 50 years] and smokeless tobacco Smokeless tobacco user: chewing tobacco Smokeless tobacco details: 22 years Alcohol intake: current Alcohol intake frequency: 3 or more drinks per day Alcohol type: beer Desire information about alcohol rehabilitation?: No Counseling given: Yes Last alcohol use date: 11/22/22 Substance/Drug Use: never Physical Exam Const: COMMON NORMALS: no acute distress, patient oriented x3 (Oriented x1 at best), alert and well nourished (Frail unwell appearing) HENMT: COMMON NORMALS: normocephalic, atraumatic, hearing grossly normal bilaterally, external ears normal, Normal external nose present and moist oral mucous membranes HEAD & SCALP: normocephalic and atraumatic NOSE: Normal external nose present EXTERNAL EAR: Yes external ears normal Eye: COMMON NORMALS: Equal, round and reactive pupils present, EOMs intact bilaterally and negative for no scleral icterus (Scleral icterus) PUPIL: Yes Equal, round and reactive pupils present Neck/C-Spine: COMMON NORMALS: full ROM, no lymphadenopathy, supple, no meningeal signs, no JVD and Thyroid normal THYROID: Thyroid normal Lymph: LYMPHATIC: no lymphadenopathy noted Chest: COMMONS NORMALS: normal inspection of the chest and normal palpation of entire chest wall Resp: COMMON NORMALS: normal respiratory effort, No retractions, No use of accessory muscles and clear to auscultation bilaterally AUSCULTATION: clear to auscultation bilaterally Cardio: COMMON NORMALS: no JVD, regular rate, regular rhythm, S1 normal heart sound present, S2 normal heart sound present, No gallops present (Cardio), No clicks present (Cardio), No murmurs present (Cardio) and No rub (Cardio) RATE: regular rate RHYTHM: regular rhythm HEART SOUNDS: S1 normal heart sound present and S2 normal heart sound present GI: COMMON NORMALS: Normal to inspection, nondistended, normoactive bowel sounds present, Soft to palpation and non-tender; negative for No hepatosplenomegaly present (Hepatomegaly noted) PALPATION: Yes Soft to palpation and No No hepatosplenomegaly present (Hepatomegaly noted) : COMMON NORMALS: Yes no CVA tenderness BLADDER/KIDNEY EXAM: Yes no CVA tenderness Back/Pelvis: COMMON NORMALS: no CVA tenderness Neuro: COMMON NORMALS: patient oriented x3 (Oriented x1 at best) SENSORIUM/ORIENTATION: Yes alert MENINGEAL SIGNS: Yes no meningeal signs Course Vital Signs: Vital signs: Vital Signs Temperature 97.7 F 04/20/23 18:27 Pulse Rate 92 04/21/23 01:12 Respiratory Rate 16 04/21/23 01:12 Blood Pressure 120/63 04/21/23 01:12 Pulse Oximetry 93 04/21/23 01:12 Oxygen Delivery Me thod Room Air 04/20/23 20:30 MDM - Altered Mental Status Medical Decision Making Patient presents to the ER with family at bedside. Patient is on hospice for liver cancer currently. Patient does not eat or drink anything in several days and has been going downhill quickly. Per patient was up alert oriented talking and driving on Wednesday but then he still went downhill very quickly to the point he has decreased responsiveness to questioning and is very fidgety and is not sleeping eating or drinking. Lab work was obtained which revealed the patient was very dehydrated with elevated BUN/creatinine of 65 and 2.3 decreased sodium of 129 with elevated potassium of 6.1 as well as significantly elevated liver enzymes that are consistent for him however his bilirubin is more elevated than normal. Patient was given 3 L normal saline before he produced any urine. Urine was clean of infection. Chest x-ray was negative. Patient was given 4 mg of morphine and 1 mg Ativan IV to help with him resting. Patient is now resting comfortably. Patient's asked if we could put him in for observation to see if his mentation cleared up. Patient's thinks this is due to the scopolamine patch that was placed on Wednesday and removed today. Dr. Don agreed for placement in observation for further evaluation and treatment. Differential Diagnosis Likely altered mental status; Unlikely alcoholic intoxication, delirium, dementia, hypoglycemia, hyponatremia, subarachnoid hemorrhage or sepsis Medical Records I reviewed the patient's medical records. Lab Data I reviewed the patient's lab results. 04/20/23 19:31 04/20/23 19:31 Radiology Impressions Chest X-Ray 04/20/23 18:47 IMPRESSION: No acute findings. Laboratory Results WBC 10.27 10^3/uL (3.29-11.43) 04/20/23 19: RBC 4.13 10^6/uL (3.85-5.65) 04/20/23 19:31 Hgb 13.20 g/dL (11.27-16.99) 04/20/23 19: Hct 40.9 % (37-53) 04/20/23 19: MCV 99.0 fl (82-101) 04/20/23 19: MCH 32.0 pg (27-33) 04/20/23 19: MCHC 32.3 g/dL (30-55) 04/20/23 19: RDW 24.1 % (12.1-15.1) H 04/20/23 19:31 Plt Count 167 10^3/cmm (157-399) 04/20/23 19: MPV 9.9 fL (7.4-10.4) 04/20/23 19:31 Neut % (Auto) 76.7 % 04/20/23 19:31 Lymph % (Auto) 14.2 % 04/20/23 19:31 [place] % (Auto) 6.4 % 04/20/23 19:31 Eos % (Auto) 0.2 % 04/20/23 19:31 Baso % (Auto) 0.2 % 04/20/23 19:31 Neut # (Auto) 7.87 10^3/uL (1.8-7.7) H 04/20/23 19:31 Lymph # (Auto) 1.5 10^3/uL (0.8-4.8) 04/20/23 19:31 [place] # (Auto) 0.7 10^3/uL (0.2-0.9) 04/20/23 19: Eos # (Auto) 0.0 10^3/uL (0.0-0.8) 04/20/23 19: Baso # (Auto) 0.0 10^3/uL (0.0-0.1) 04/20/23 19: Nucleated RBC % (auto) 0 % 04/20/23 19: Nucleated RBCs # 0.0 /100WBC 04/20/23 19: PT 21.10 SECONDS (12.1-14.9) H 04/20/23 19:31 INR 1.76 (0.8-1.2) H 04/20/23 19:31 Sodium 129 mmol/L (136-145) L 04/20/23 19:31 Potassium 6.1 mmol/L (3.5-5.1) H 04/20/23 19:31 Chloride 96 mmol/L (98-107) L 04/20/23 19:31 Carbon Dioxide 15 mmol/L (22-29) L 04/20/23 19:31 Anion Gap 24.1 (5-19) H 04/20/23 19:31 BUN 65 mg/dL (8-23) H 04/20/23 19:31 Creatinine 2.3 mg/dL (0.7-1.2) H 04/20/23 19:31 GFR Calculation 28.7 mL/min (90-130) L 04/20/23 19:31 Glucose 49 mg/dL (65-115) L 04/20/23 19:31 Calculated Osmolality 284 mOsm/kg (285-295) L 04/20/23 19:31 Calcium 10.2 mg/dL (8.5-10.5) 04/20/23 19:31 Phosphorus 5.7 mg/dL (2.5-4.5) H 04/20/23 19:31 Magnesium 2.4 mg/dL (1.7-2.3) H 04/20/23 19:31 Total Bilirubin 10.6 mg/dL (0.15-1.2) H* 04/20/23 19:31 AST 855 U/L (0-40) H 04/20/23 19:31 ALT 227 U/L (0-41) H 04/20/23 19:31 Alkaline Phosphatase 247 U/L (40-130) H 04/20/23 19:31 Ammonia 55 umol/L (16-60) 04/20/23 19:31 Total Protein 7.3 g/dL (6.6-8.7) 04/20/23 19:31 Albumin 1.6 g/dL (3.5-5.2) L 04/20/23 19:31 Globulin 5.7 g/dL (1.3-4.6) H 04/20/23 19:31 Urine Color [place] (Yellow) 04/20/23 22:18 Urine Appearance Sl hazy (CLEAR) A 04/20/23 22:18 Urine pH 5 (5-7) 04/20/23 22:18 Ur Specific [place] 1.020 (1.005-1.030) 04/20/23 22:18 Urine Protein Neg (Negative) 04/20/23 22:18 Urine Glucose (UA) Norm (Normal) 04/20/23 22:18 Urine Ketones Negative (Negative) 04/20/23 22:18 Urine Blood 2+ (Negative) H 04/20/23 22:18 Urine Nitrate Negative (Negative) 04/20/23 22:18 Urine Bilirubin 3+ (Negative) H 04/20/23 22:18 Urine Urobilinogen 8 mg/dL (Negative) H 04/20/23 22:18 Ur Leukocyte Esterase Negative (Negative) 04/20/23 22:18 Urine RBC 5-10 /hpf (0-2) H 04/20/23 22:18 Urine WBC None /hpf (0-5) 04/20/23 22:18 Ur Squamous Epith Cells None /hpf (0-5) 04/20/23 22:18 Amorphous Sediment 2+ /hpf 04/20/23 22:18 Urine Bacteria 1+ /hpf (NONE) H 04/20/23 22:18 Coarse Granular Casts 0-4 /lpf H 04/20/23 22:18 Urine Mucus 2+ /hpf 04/20/23 22:18 Ur Oval Fat Bodies 1+ /hpf 04/20/23 22:18 Discharge Plan Discharge Patient Disposition: Placed in Observation Clinical Impression: Hepatocellular carcinoma Altered mental status Qualifiers: Altered mental status type: disorientation Qualified Code(s): R41.0 - Disorientation, unspecified Coding Level of Care Code ED [employer] for [place]
[2023-04-20] MEDS: sodium chloride 0.9% 1,000 ML 999 ML IV ×3 (19:03→21:34)
[2023-04-20 19:05] VITALS: BP 115/68; PULSE 98; O2SAT 96
[2023-04-20 19:38] LABS: Basophils % 0.2 %; Eosinophils % 0.2 %; Hematocrit 40.9 % (37-53); Lymphocytes # 1.5 10^3/uL (0.8-4.8); Lymphocytes % 14.2 %; Mean Corpuscular HGB Conc 32.3 g/dL (30-55); Mean Platelet Volume 9.9 fL (7.4-10.4); Monocytes # 0.7 10^3/uL (0.2-0.9); Monocytes % 6.4 %; Neutrophils # 7.87 10^3/uL (1.8-7.7); Neutrophils % 76.7 %; Nucleated Red Blood Cells % 0 %; Platelet Count 167 10^3/cmm (157-399); Red Blood Count 4.13 10^6/uL (3.85-5.65); Red Cell Distribution Width 24.1 % (12.1-15.1); White Blood Count 10.27 10^3/uL (3.29-11.43)
[2023-04-20 19:52] LABS: INR 1.76 (0.8-1.2)
[2023-04-20 19:55] LABS: Ammonia 55 umol/L (16-60)
[2023-04-20 20:00] VITALS: BP 126/79; PULSE 101; O2SAT 97
[2023-04-20 20:06] LABS: Alanine Aminotransferase 227 U/L (0-41); Albumin Level 1.6 g/dL (3.5-5.2); Alkaline Phosphatase 247 U/L (40-130); Blood Urea Nitrogen 65 mg/dL (8-23); Calcium 10.2 mg/dL (8.5-10.5); Carbon Dioxide 15 mmol/L (22-29); Chloride 96 mmol/L (98-107); Globulin 5.7 g/dL (1.3-4.6); Glomerular Filtration Rate 28.7 mL/min (90-130); Glucose 49 mg/dL (65-115); Magnesium 2.4 mg/dL (1.7-2.3); Osmolality Calculated 284 mOsm/kg (285-295); Phosphorus 5.7 mg/dL (2.5-4.5); Sodium 129 mmol/L (136-145); Total Protein 7.3 g/dL (6.6-8.7)
[2023-04-20 20:09] LABS: Anion Gap 24.1 (5-19); Potassium 6.1 mmol/L (3.5-5.1)
[2023-04-20 20:13] LABS: Total Bilirubin 10.6 mg/dL (0.15-1.2)
[2023-04-20 20:17] LABS: Aspartate Amino Transferase 855 U/L (0-40)
[2023-04-20 20:30] VITALS: BP 125/84; PULSE 100; O2SAT 96
[2023-04-20] MEDS: dextrose 50% syringe 50 mL IVP (20:34)
[2023-04-20] MEDS: ketorolac 30 mg/mL INJ IVP (22:25)
[2023-04-20 22:34] LABS: Add Urine Microscopic? YES; Bilirubin Urine 3+ (Negative); Blood Urine 2+ (Negative); Glucose Urine UA Norm (Normal); Ketones Urine Negative (Negative); Leukocyte Esterase Urine Negative (Negative); Nitrate Urine Negative (Negative); Protein Urine Neg (Negative); Urine Appearance SL Hazy (CLEAR); Urine Color Amber (Yellow); Urobilinogen Urine 8 mg/dL (Negative); pH Urine 5 (5-7)
[2023-04-20 22:35] LABS: Add Urine Culture? No; Amorphous Sediment Urine 2+ /hpf; Bacteria Urine 1+ /hpf; Coarse Granular Casts Urine 0-4 /lpf; Mucus Urine 2+ /hpf; Oval Fat Bodies Urine 1+ /hpf
[2023-04-20 22:59] VITALS: BP 145/82; PULSE 96; RESP 16; O2SAT 92
[2023-04-20] MEDS: morphine 4 mg/mL SDV 1 mL IVP (23:25)
[2023-04-20] MEDS: LORazepam 2 mg/mL INJ 1 mL 1 MG IVP (23:25)
[2023-04-21] VITALS (9 sets, daily range): BP systolic 102–120; BP diastolic 49–63; PULSE 92–95; RESP 10–20; TEMP 36.3–36.7; O2SAT 90–94
--- NOTE | 2023-04-21 02:57 | PM.HP ---
Providers/Chief Complaint Admitting Physician: Daphney Don MD Primary Care Provider: ODALYS Brooks Chief Complaint: AMS History of Present Illness Espinoza Law Jr is a 67 year old male with history of hepatocellular carcinoma was brought in by for altered mental status for last 3 to 4 days. Patient is sedated with IV morphine and lorazepam in ER due to agitation. Family not available at the bedside for further history. As per the ER physician reported that he was doing well walking talking and driving around 4 days ago. He was prescribed scopolamine patch after which his mental status started deteriorating he got more confused and he have not been eating for the last 3 to 4 days. The scopolamine patch was discontinued since 14 hours ago. he is currently on hospice care for hepatocellular carcinoma. On arrival in ER he was incoherent and agitated hence received 1 dose of IV morphine 4 mg and Ativan 1 mg. As per the ER physician he has been sleeping since then. Review of Systems Narrative: Unable to obtain due to altered mental status Medications/Allergies Home Medications Medication Instructions Recorded Confirmed Last Taken Type hydrocodone 5 mg-acetaminophen 325 1 tab PO Q4H PRN pain 7 days #40 03/30/23 04/08/23 Unknown Rx mg tablet tabs ondansetron HCl 4 mg tablet 4 mg PO Q8H 5 days #15 tabs 03/30/23 04/08/23 Unknown Rx omeprazole 40 mg capsule,delayed 40 mg PO DAILY PRN 04/08/23 04/08/23 Unknown History release Allergies Allergy/AdvReac Type Severity Reaction Status Date / Time codeine Allergy ALGY-Anaphy Verified 04/20/23 18:46 laxis Penicillins Allergy Unknown Verified 04/20/23 18:27 PFSH Acute PFSH: Medical History Chronic neck pain Hepatocellular carcinoma Liver cancer Surgical History History of surgery on arm Hx of foot surgery Family History Father Cancer Mother CAD (coronary artery disease) Social History Smoking and tobacco status: current every day smoker cigarettes Packs smoked per day: 1 Years cigarettes smoked: 50 [ Other cigarette details: smoked 50 years] and smokeless tobacco Smokeless tobacco user: chewing tobacco Smokeless tobacco details: 22 years Alcohol intake: current Alcohol intake frequency: 3 or more drinks per day Alcohol type: beer Desire information about alcohol rehabilitation?: No Counseling given: Yes Last alcohol use date: 11/22/22 Substance/Drug Use: never Vitals/I&O/Wt Last Vital Signs Temp 97.5 F L 04/21/23 02:53 Pulse 94 04/21/23 02:53 Resp 10 L 04/21/23 02:53 BP 110/58 04/21/23 02:53 Pulse Ox 92 04/21/23 02:53 O2 Del Method Room Air 04/20/23 20:30 04/20/23 04/20/23 04/21/23 14:59 22:59 06:59 Intake Total 3000 / 3000 Balance 3000 / 3000 Weight last 48 hrs Weight 59.874 kg Physical Exam Narrative: He is nonresponsive to verbal stimuli, not in acute distress, appears cachectic Chest clear to auscultation bilaterally Cardiovascular normal heart sounds Abdomen soft nondistended nontender normal bowel sounds Extremities no pedal edema seen Data 04/20/23 19:31 04/20/23 19:31 CXR: Radiologist's impression: No acute findings A&P Assessment and plan (1) Altered mental status: Likely secondary to adverse drug reaction[scopolamine patch]. Half-life is 9.5 hours and the drug is mainly metabolized in the liver. Given history of hepatocellular carcinoma and elevated liver enzymes, adverse drug effect could be prolonged. Also found to have elevated BUN/creatinine likely secondary to severe dehydration. Will monitor for now Will give IV fluids normal saline at 75 mL/h For agitation IV morphine 4 mg every 4 hours as needed IV lorazepam 1 mg every 4 hours as needed Social work consult in a.m. Qualifiers: Altered mental status type: disorientation Qualified Code(s): R41.0 - Disorientation, unspecified (2) Adverse drug effect: (3) Abnormal liver function: Secondary to hepatocellular carcinoma Attestations Medical Necessity Statement*: Patient might need continued hospitalization for more than 2 midnights for altered mental status and adverse drug reaction. Time Spent in Patient Care: 25 minutes Coding Level of Care Code Acute Code for Chg Fwd Diagnoses Altered mental status R41.0 Altered mental status type: disorientation Adverse drug effect T50.905A Abnormal liver function R94.5 Time Spent (min) 25
[2023-04-21] MEDS: sodium chloride 0.9% 1,000 ML 75 ML IV (03:58)
--- NOTE | 2023-04-21 04:37 | ECG_ITS ---
[facility] Test Date: 2023-04-21 Pat Name: Espinoza Law Jr Department: Room: 273 Gender: Male Primer Supervisor: : 1955 Requested By: Daphney Don Order Number: [id number] aTylor MD: Alfonso Baires M.D. Measurements Intervals [place] Rate: 92 P: -11 [place]: 146 QRS: -21 QRSD: 94 T: -8 QT: 347 QTc: 430 Interpretive Statements SINUS RHYTHM BORDERLINE LEFT AXIS DEVIATION [QRS AXIS < -20] MINIMAL VOLTAGE CRITERIA FOR LVH, CONSIDER NORMAL VARIANT [MEETS CRITERIA IN ONE OF: R(aVL), S(V1), R(V5), R(V5/V6)+S(V1)] Compared to ECG 11/06/2022 15:36:42 Incomplete right bundle-branch block no longer present Electronically Signed On 04-21-2023 15:47:07 CDT by Alfonso Baires M.D. [email or web address]
[2023-04-21] MEDS: dextrose 5%-sod chloride 0.9% 1,000 ML 100 ML IV ×2 (10:37→20:39)
--- NOTE | 2023-04-21 14:00 | W.PM.EVENTAC ---
Event Note Event Note: Admitted overnight. H&P and labs appreciated. Goals of care discussion done in detail with patient's daughter and over the phone. They confirm that patient is comfort care measures given significant hepatocellular carcinoma. We discussed that unfortunately ultimately status is most likely in setting of possible scopolamine patch versus progression of disease which is caused him to have significant hepatic and renal insufficiency currently and given goals of care it would be best to continue IV hydration while keeping patient as comfortable as possible with comfort care medications. Family was agreeable and wanted to continue with comfort measures. Event Notes Attestations Time Spent in Patient Care: Greater than 35 minutes Other Coding Information Prolonged care (total time indicated above or notated here) Goals of care discussion with multiple family members
[2023-04-21] MEDS: morphine 4 mg/mL SDV 1 mL IVP (21:52)
[2023-04-22 03:43] VITALS: BP 119/52; PULSE 94; RESP 16; TEMP 36.3; O2SAT 90
[2023-04-22] MEDS: dextrose 5%-sod chloride 0.9% 1,000 ML 100 ML IV (05:57)
[2023-04-22 07:15] VITALS: BP 113/50; PULSE 92; RESP 20; TEMP 36.4; O2SAT 90
[2023-04-22] MEDS: LORazepam 2 mg/mL INJ 1 mL 1 MG IVP (08:16)
[2023-04-22 09:36] VITALS: RESP 20; O2SAT 90
[2023-04-22] MEDS: morphine 4 mg/mL SDV 1 mL IVP (09:36)
--- NOTE | 2023-04-22 09:38 | P.DS_ITS ---
Discharge Providers Date of Admission: 04/21/23 02:15 Date of Discharge: April 22, 2023 Attending Provider at Admission: Daphney Don MD Attending Provider at Discharge: Mario Araujo MD Primary Care Provider: ODALYS Brooks Diagnoses at Discharge Discharge Diagnosis (1) Altered mental status: Status: Acute Qualifiers: Altered mental status type: disorientation Qualified Code(s): R41.0 - Disorientation, unspecified (2) Adverse drug effect: Status: Acute (3) Abnormal liver function: Status: Acute Reason for Visit Reason for Visit: AMS Brief History: History as per HPI: Espinoza Law Jr is a 67 year old male with history of hepatocellular carcinoma was brought in by for altered mental status for last 3 to 4 days.? Patient is sedated with IV morphine and lorazepam in ER due to agitation.? Family not available at the bedside for further history.? As per the ER physician reported that he was doing well walking talking and driving around 4 days ago.? He was prescribed scopolamine patch after which his mental status started deteriorating he got more confused and he have not been eating for the last 3 to 4 days.? The scopolamine patch was discontinued since 14 hours ago. he is currently on hospice care for hepatocellular carcinoma.? On arrival in ER he was incoherent and agitated hence received 1 dose of IV morphine 4 mg and Ativan 1 mg.? As per the ER physician he has been sleeping since then. Hospital Course Hospital Course Patient was admitted to the hospital further evaluation and management of altered mental status. Goals of care and CODE STATUS were discussed and confirmed in detail with patient family member including and daughter over the phone. They confirm that patient is comfort care measures given significant hepatocellular carcinoma. We discussed that unfortunately ultimately status is most likely in setting of possible scopolamine patch versus progression of disease which is caused him to have significant hepatic and renal insufficiency currently and given goals of care it would be best to continue IV hydration while keeping patient as comfortable as possible with comfort care medications. Family was agreeable and wanted to continue with comfort measures. Patient has been discharged back home with ongoing hospice services. Physical Exam Narrative: Examination deferred given comfort care status. Patient seems in slight distress because of difficulty in breathing and so was given morphine Urinary Catheter Management: Whitaker: Cath Placed During This Visit: yes Reason for Continuing Indwelling Catheter: Hospice/Comfort/Palliative Care Urinary Catheter Date of Insertion: 04/21/23 Urinary Catheter Time of Insertion: 05:57 Discharge Data Studies Completed and Pending Completed Studies During Hospitalization Category Date Time Status XR chest 1V portable [id number] Stat Exams 04/20/23 18:47 Completed Radiology Impressions Chest X-Ray 04/20/23 18:47 IMPRESSION: No acute findings. Laboratory Results WBC 10.27 10^3/uL (3.29-11.43) 04/20/23 19:31 RBC 4.13 10^6/uL (3.85-5.65) 04/20/23 19:31 Hgb 13.20 g/dL (11.27-16.99) 04/20/23 19:31 Hct 40.9 % (37-53) 04/20/23 19:31 MCV 99.0 fl (82-101) 04/20/23 19:31 MCH 32.0 pg (27-33) 04/20/23 19:31 MCHC 32.3 g/dL (30-55) 04/20/23 19:31 RDW 24.1 % (12.1-15.1) H 04/20/23 19:31 Plt Count 167 10^3/cmm (157-399) 04/20/23 19:31 MPV 9.9 fL (7.4-10.4) 04/20/23 19:31 Neut % (Auto) 76.7 % 04/20/23 19:31 Lymph % (Auto) 14.2 % 04/20/23 19:31 [place] % (Auto) 6.4 % 04/20/23 19:31 Eos % (Auto) 0.2 % 04/20/23 19:31 Baso % (Auto) 0.2 % 04/20/23 19:31 Neut # (Auto) 7.87 10^3/uL (1.8-7.7) H 04/20/23 19:31 Lymph # (Auto) 1.5 10^3/uL (0.8-4.8) 04/20/23 19:31 [place] # (Auto) 0.7 10^3/uL (0.2-0.9) 04/20/23 19:31 Eos # (Auto) 0.0 10^3/uL (0.0-0.8) 04/20/23 19:31 Baso # (Auto) 0.0 10^3/uL (0.0-0.1) 04/20/23 19:31 Nucleated RBC % (auto) 0 % 04/20/23 19:31 Nucleated RBCs # 0.0 /100WBC 04/20/23 19:31 PT 21.10 SECONDS (12.1-14.9) H 04/20/23 19:31 INR 1.76 (0.8-1.2) H 04/20/23 19:31 Sodium 129 mmol/L (136-145) L 04/20/23 19:31 Potassium 6.1 mmol/L (3.5-5.1) H 04/20/23 19:31 Chloride 96 mmol/L (98-107) L 04/20/23 19:31 Carbon Dioxide 15 mmol/L (22-29) L 04/20/23 19:31 Anion Gap 24.1 (5-19) H 04/20/23 19:31 BUN 65 mg/dL (8-23) H 04/20/23 19:31 Creatinine 2.3 mg/dL (0.7-1.2) H 04/20/23 19:31 GFR Calculation 28.7 mL/min (90-130) L 04/20/23 19:31 Glucose 49 mg/dL (65-115) L 04/20/23 19: Calculated Osmolality 284 mOsm/kg (285-295) L 04/20/23 19:31 Calcium 10.2 mg/dL (8.5-10.5) 04/20/23 19: Phosphorus 5.7 mg/dL (2.5-4.5) H 04/20/23 19:31 Magnesium 2.4 mg/dL (1.7-2.3) H 04/20/23 19:31 Total Bilirubin 10.6 mg/dL (0.15-1.2) H* 04/20/23 19:31 AST 855 U/L (0-40) H 04/20/23 19:31 ALT 227 U/L (0-41) H 04/20/23 19:31 Alkaline Phosphatase 247 U/L (40-130) H 04/20/23 19:31 Ammonia 55 umol/L (16-60) 04/20/23 19:31 Total Protein 7.3 g/dL (6.6-8.7) 04/20/23 19:31 Albumin 1.6 g/dL (3.5-5.2) L 04/20/23 19:31 Globulin 5.7 g/dL (1.3-4.6) H 04/20/23 19:31 Urine Color Jocelin (Yellow) 04/20/23 22:18 Urine Appearance Sl hazy (CLEAR) A 04/20/23 22:18 Urine pH 5 (5-7) 04/20/23 22:18 Ur Specific [place] 1.020 (1.005-1.030) 04/20/23 22:18 Urine Protein Neg (Negative) 04/20/23 22:18 Urine Glucose (UA) Norm (Normal) 04/20/23 22:18 Urine Ketones Negative (Negative) 04/20/23 22:18 Urine Blood 2+ (Negative) H 04/20/23 22:18 Urine Nitrate Negative (Negative) 04/20/23 22:18 Urine Bilirubin 3+ (Negative) H 04/20/23 22:18 Urine Urobilinogen 8 mg/dL (Negative) H 04/20/23 22:18 Ur Leukocyte Esterase Negative (Negative) 04/20/23 22:18 Urine RBC 5-10 /hpf (0-2) H 04/20/23 22:18 Urine WBC None /hpf (0-5) 04/20/23 22:18 Ur Squamous Epith Cells None /hpf (0-5) 04/20/23 22:18 Amorphous Sediment 2+ /hpf 04/20/23 22:18 Urine Bacteria 1+ /hpf (NONE) H 04/20/23 22:18 Coarse Granular Casts 0-4 /lpf H 04/20/23 22:18 Urine Mucus 2+ /hpf 04/20/23 22:18 Ur Oval Fat Bodies 1+ /hpf 04/20/23 22:18 Vitals Last Vital Signs Temp 97.6 F 04/22/23 07:15 Pulse 92 04/22/23 07:15 Resp 20 H 04/22/23 07:15 BP 113/50 04/22/23 07:15 Pulse Ox 90 04/22/23 07:15 O2 Del Method Room Air 04/22/23 07:15 Discharge Plan Discharge Patient Disposition: Hospice - Home Condition: Stable Prescriptions: Continued ondansetron HCl 4 mg tablet 4 mg PO Q8H 5 Days Qty: 15 0RF hydrocodone-acetaminophen 5-325 mg tablet 1 tab PO Q4H PRN (Reason: pain) 7 Days Qty: 40 0RF omeprazole 40 mg capsule,delayed release(DR/EC) 40 mg PO DAILY PRN Discharge Orders: Discharge Order (Routine); Ordered 04/22/23 Ordered By: Mario Araujo Referrals: [facility] [Outside] Kristin Chavez FNP [Primary Care Provider] - Discharge Diet: Advance as tolerated Discharge Activity: Bedrest Patient Instructions: Hospice Care, Benzodiazepine Use Disorder (ED), Liver Cancer (DC), Altered Mental Status (ED), Opioid Safety Activity Restrictions/Additional Instructions: Comfort care status Discharge Attestations Time Spent in Discharge Care*: less than 30 min Specific Discharge Activities: educating and/or supporting family/caregiver, discussing with pcp/other providers, discussing with family caseworker/social workers/dc planners, documenting/other paperwork and evaluating patient/reviewing data Status at Discharge: Cognitive status at discharge: other (Somnolent given comfort measures status in setting of hepatocellular carcinoma) , Behavioral status at discharge: cooperative , Functional status at discharge: bed bound , Overall status at discharge: patient has a new baseline Quality Metrics Clinical Quality Measures [ No reported AMI, CVA or VTE this stay] Coding Level of Care Code 67885 Total time (in minutes) for Discharge: 25 Diagnoses Altered mental status R41.0 Altered mental status type: disorientation Adverse drug effect T50.905A Abnormal liver function R94.5
--- NOTE | 2023-04-22 10:51 | PC.CHAP ---
Pastoral Care Encounter/Spiritual Assessment Type of Contact [] Declined emergency room orderly visit [] Patient/Family/Request visit [] Outpatient visit [] Follow-up visit [] Physician referral [] Code/Alert [x] Routine visit [] Staff referral [] Actively dying [] Patient sleeping [] Family support [] [] Out of room [] Palliative care [] [x] Receiving care in room [] Pre-surgical visit [] Trauma [] Long length of stay [] ICU visit [] Other: Relational/Emotional Strength [x] Patient feels connected with others/family/visitors/staff [] Distress [] Loneliness/isolation [] Abandonment Spirituality of Patient [x] Person of Coni [] Attends Taoism of their Coni [x] Believes in Prayer [] Reads Bible or Judaism materials [] There are Spiritual issues to be addressed [place] Interventions [x] Prayer [x] Active listening [x] Non-anxious presence [x] Spiritual/emotional support [] Crisis/trauma care [x] Spiritual counseling [] Bereavement support [] Provided bereavement packet [] Provided Bible/devotional materials [] Provided toy/stuffed animal, coloring book to patient or family member [] Provided Communion [] Anointing/[place] [] Salvation [x] Completed spiritual assessment [] Other: Impact on Illness or Injury [] Angry [] Fearful [] Anxious [] Often cries [] Exhaustion [] Unable to work [] Unable to attend sikh [] Unable to walk/stand [] Unable to read [] Unable to drive [] Unable to eat/drink [] Unable to sleep [] Unable to be with family [] Patient intubated [] Other: Summary ANS waiting doctors results has a postive attitude well go home Time spent with patient 10 mins
[2023-04-22 17:42] VITALS: RESP 20; O2SAT 90
== END 2023-04-22 17:42 | disposition hospice, home (50) | DRG 948 ==
LOC: ER 04-21 02:03 → MEDSURG 04-21 02:17
PROVIDERS: Admitting Provider Internal Medicine; Emergency Provider Emergency Medicine; PCP Nurse Practitioner Family; Visit Provider Student in an Organized Health Care Education/Training Program
DX: R41.82 Altered mental status, unspecified (principal); C22.0 Liver cell carcinoma; T44.3X5A Adverse effect of other parasympatholytics [anticholinergics and antimuscarinics] and spasmolytics, initial encounter; Z51.5 Encounter for palliative care; E86.0 Dehydration; F17.210 Nicotine dependence, cigarettes, uncomplicated
CPT/HCPCS: 36415; 51702; 71045; 80053; 81001; 82140; 83735; 84100; 85025; 85610; 93005; 96374; 96375; 99285; J1885; J2060; J2270; J7030; J7042